=== PATIENT | male | born 1950 | race Hispanic/Latino ===

== ENCOUNTER 2020-08-16 04:21 | Emergency (ER) | payer SELFPAY ==
[~2020-08-16] VITALS: Ht 170.2 cm; Wt 88.5 kg
[~2020-08-16 04:21] MED LIST: AMLODIPINE BESYL5 MG PO; ASPIR 8181 MG PO; LISINOPRIL2.5 MG PO; METOPROLOL SUCC25 MG; OMEPRAZOLE40 MG; POTASSIUM 25 M25 MEQ
[2020-08-16 04:54] LABS: BASOPHILS # (AUTO) 0.1 (0.0-0.1); BASOPHILS % 0.7 % (0.0-1.0); EOSINOPHILS # (AUTO) 0.2 (0.0-0.4); HEMATOCRIT 45.7 % (38.2-49.6); HEMOGLOBIN 15.8 g/dL (14.0-18.0); LYMPHOCYTES # (AUTO) 2.6 (1.0-3.2); LYMPHOCYTES % 39.1 % (18.0-39.1); MEAN CORPUSCULAR HEMOGLOBIN 30.6 pg (28-32); MEAN CORPUSCULAR HGB CONC 34.6 g/dL (31-35); MEAN CORPUSCULAR VOLUME 88.6 fL (81-99); MONOCYTES # (AUTO) 0.7 (0.2-0.8); MONOCYTES % 9.6 % (4.4-11.3); NEUTROPHILS # (AUTO) 3.2 (2.1-6.9); NEUTROPHILS % 47.5 % (38.7-80.0); PLATELET COUNT 218 x10e3/uL (140-360); RED BLOOD COUNT 5.16 x10e6/uL (4.3-5.7); RED CELL DISTRIBUTION WIDTH 12.9 % (11.7-14.4)
[2020-08-16 05:13] LABS: INR 1.03; PARTIAL THROMBOPLASTIN TIME 26.6 seconds (23.8-35.5)
[2020-08-16 05:22] LABS: ALANINE AMINOTRANSFERASE 23 IU/L (0-55); ALBUMIN 4.2 g/dL (3.5-5.0); ALBUMIN/GLOBULIN RATIO 1.3 (0.8-2.0); ALKALINE PHOSPHATASE 63 IU/L (40-150); ANION GAP 14.7 mmol/L (8-16); BLOOD UREA NITROGEN 16 mg/dL (7-26); BUN/CREATININE RATIO 14 (6-25); CALCIUM 8.7 mg/dL (8.4-10.2); CARBON DIOXIDE 27 mmol/L (22-29); CHLORIDE 104 mmol/L (98-107); CREATINE KINASE 200 IU/L (30-200); CREATININE, SERUM 1.16 mg/dL (0.72-1.25); EST GLOMERULAR FILTRATION RATE > 60 ML/MIN (60-); GLUCOSE 128 mg/dL (74-118); POTASSIUM 3.7 mmol/L (3.5-5.1); SODIUM 142 mmol/L (136-145)
[2020-08-16] MEDS ORDERED: ONDANSETRON HCL INJ 2MG/ML 2ML 2 MG/ML VIAL IV STA (05:25)
[2020-08-16] MEDS ORDERED: PANTOPRAZOLE 40 MG 10ML VIAL IV STA (05:25)
[2020-08-16] MEDS ORDERED: SODIUM CHLORIDE 0.9% 1000ML 1,000 ML IV STA (05:25)
[2020-08-16 05:29] LABS: CLARITY,URINE SL CLOUDY (CLEAR); COLOR,URINE YELLOW (YELLOW); KETONES,URINE NEGATIVE (NEGATIVE); LEUKOCYTE ESTERASE ,URINE NEGATIVE (NEGATIVE); NITRITE,URINE NEGATIVE (NEGATIVE); PROTEIN,URINE DIPSTICK NEGATIVE (NEGATIVE); URINE UROBILINOGEN 0.2 mg/dL (0.2 - 1)
[2020-08-16 05:30] LABS: BACTERIA,URINE RARE /HPF; BILIRUBIN,URINE NEGATIVE (NEGATIVE); EPITHELIAL CELLS,URINE FEW /LPF; RBC,URINE 0-5 /HPF (0-5); WBC,URINE (MAN) 0-5 /HPF (0-5)
[2020-08-16] MEDS ORDERED: MORPHINE SULFATE INJ 4 MG/ML INJ 1ML IV PRN (05:30)
[2020-08-16] MEDS ORDERED: SODIUM CHLORIDE 0.9% 50ML 0 ML ONE (05:46)
[2020-08-16] MEDS ORDERED: IOPAMIDOL 370 MG/ML 200 ML INFUS..BTL INJ ONE (05:46)
[2020-08-16 06:45] LABS: AMYLASE 137 U/L (25-125); LIPASE 38 U/L (8-78)
[2020-08-16 07:51] LABS: CREATINE KINASE 171 IU/L (30-200)
[2020-08-16 08:25] VITALS: BP 148/74
== END 2020-08-16 08:37 | disposition home or self-care (01) ==
LOC: ER 04:51
DX: R07.9 Chest pain, unspecified (principal); R10.13 Epigastric pain; K21.9 Gastro-esophageal reflux disease without esophagitis; K29.70 Gastritis, unspecified, without bleeding; I10 Essential (primary) hypertension; I48.91 Unspecified atrial fibrillation
CPT/HCPCS: 36415; 71045; 74176; 80053; 81001; 82150; 82550; 82553; 83690; 83880; 84484; 85025; 85610; 85730; 93005; 99284; C9113; J2405; J7030; Q9967

== ENCOUNTER 2022-10-17 15:51 | Emergency (ER) | payer SELFPAY ==
[~2022-10-17] VITALS: Ht 170.2 cm; Wt 88.5 kg
[2022-10-17 16:33] LABS: BASOPHILS % 0.6 % (0.0-1.0); EOSINOPHILS # (AUTO) 0.1 (0.0-0.4); EOSINOPHILS % 1.8 % (0.0-6.0); HEMATOCRIT 50.5 % (38.2-49.6); HEMOGLOBIN 16.9 g/dL (14.0-18.0); LYMPHOCYTES # (AUTO) 2.6 (1.0-3.2); LYMPHOCYTES % 37.8 % (18.0-39.1); MEAN CORPUSCULAR HEMOGLOBIN 30.5 pg (28-32); MEAN CORPUSCULAR HGB CONC 33.5 g/dL (31-35); MEAN CORPUSCULAR VOLUME 91.2 fL (81-99); MONOCYTES # (AUTO) 0.6 (0.2-0.8); MONOCYTES % 8.1 % (4.4-11.3); NEUTROPHILS # (AUTO) 3.5 (2.1-6.9); NEUTROPHILS % 51.4 % (38.7-80.0); PLATELET COUNT 253 x10e3/uL (140-360); RED BLOOD COUNT 5.54 x10e6/uL (4.3-5.7); RED CELL DISTRIBUTION WIDTH 12.1 % (11.7-14.4)
[2022-10-17 16:52] LABS: ALBUMIN 4.1 g/dL (3.5-5.0); ANION GAP 14.4 mmol/L (8-16); CALCIUM 9.2 mg/dL (8.4-10.2); CREATININE, SERUM 0.91 mg/dL (0.72-1.25); POTASSIUM 3.4 mmol/L (3.5-5.1)
[2022-10-17 19:20] VITALS: BP 164/79
== END 2022-10-17 18:29 | disposition home or self-care (01) ==
LOC: ER 16:02
DX: E11.65 Type 2 diabetes mellitus with hyperglycemia (principal); R11.0 Nausea; I10 Essential (primary) hypertension; I48.91 Unspecified atrial fibrillation
CPT/HCPCS: 36415; 71046; 80053; 82948; 83036; 84484; 85025; 93005; 99284

== ENCOUNTER 2024-08-09 14:29 | Emergency (ER) | payer OTHER ==
[~2024-08-09] VITALS: Ht 170.2 cm; Wt 88.5 kg
[2024-08-09 14:35] VITALS: TEMP 97.7
[2024-08-09 14:56] LABS: BASOPHILS % 0.7 % (0.0-1.0); EOSINOPHILS # (AUTO) 0.1 (0.0-0.4); HEMATOCRIT 42.9 % (38.2-49.6); HEMOGLOBIN 14.9 g/dL (14.0-18.0); LYMPHOCYTES # (AUTO) 2.4 (1.0-3.2); LYMPHOCYTES % 40.5 % (18.0-39.1); MEAN CORPUSCULAR HEMOGLOBIN 31.4 pg (28-32); MEAN CORPUSCULAR HGB CONC 34.7 g/dL (31-35); MEAN CORPUSCULAR VOLUME 90.5 fL (81-99); MONOCYTES # (AUTO) 0.5 (0.2-0.8); NEUTROPHILS # (AUTO) 2.8 (2.1-6.9); NEUTROPHILS % 47.6 % (38.7-80.0); PLATELET COUNT 221 x10e3/uL (140-360); RED BLOOD COUNT 4.74 x10e6/uL (4.3-5.7); RED CELL DISTRIBUTION WIDTH 12.1 % (11.7-14.4); WHITE BLOOD COUNT 5.87 x10e3/uL (4.8-10.8)
[2024-08-09] MEDS: SODIUM CHLORIDE 0.9% 1000ML 1,000 ML IV STA (15:09)
[2024-08-09 15:12] LABS: INR 1.02; PARTIAL THROMBOPLASTIN TIME 25.8 seconds (23.8-35.5)
[2024-08-09 15:15] LABS: ALBUMIN 3.9 g/dL (3.5-5.0); ALBUMIN/GLOBULIN RATIO 1.3 (0.8-2.0); ANION GAP 15.6 mmol/L (8-16); BILIRUBIN,TOTAL 0.5 mg/dL (0.2-1.2); CALCIUM 9.5 mg/dL (8.4-10.2); CREATININE, SERUM 1.03 mg/dL (0.72-1.25); MAGNESIUM 1.8 MG/DL (1.3-2.1); POTASSIUM 3.6 mmol/L (3.5-5.1); TOTAL PROTEIN 6.9 g/dL (6.5-8.1)
[2024-08-09 15:20] LABS: TROPONIN I 0.005 ng/mL (0-0.300)
[2024-08-09 16:45] VITALS: PULSE 57; RESP 17; O2SAT 99
== END 2024-08-09 18:55 | disposition home or self-care (01) ==
LOC: ER 14:37
DX: R07.9 Chest pain, unspecified (principal); E11.65 Type 2 diabetes mellitus with hyperglycemia; I10 Essential (primary) hypertension; I48.91 Unspecified atrial fibrillation
CPT/HCPCS: 36415; 71045; 80053; 82550; 83690; 83735; 83880; 84484; 85025; 85610; 85730; 93005; 99284; J2470; J7030